=== PATIENT | female | born 1990 | race Caucasian/White ===

== ENCOUNTER 2021-07-01 09:47 | Emergency (ER) | payer MEDICAID, OTHER ==
[~2021-07-01] VITALS: Ht 160 cm; Wt 49.9 kg
[2021-07-01 11:44] LABS: Basophils # (auto) 0.1 10 ^3/uL (0-0.2); Eosinophils # (auto) 0.1 10 ^3/uL (0-0.8); Eosinophils % (auto) 1.8 % (0.0-7.0); Hematocrit 34.5 % (36.0-46.0); Hemoglobin 11.8 g/dL (12.2-16.2); Lymphocytes # (auto) 1.9 10 ^3/uL (0.4-5.4); Lymphocytes % (auto) 30.2 % (10.0-50.0); Mean Corpuscular Hemoglobin 30.8 pg (28.0-32.0); Mean Corpuscular Hgb Conc. 34.3 g/dL (32.0-36.0); Mean Corpuscular Volume 89.8 fL (80.0-100.0); Monocytes # (auto) 0.6 10 ^3/uL (0-1.3); Monocytes % (auto) 9.7 % (0.0-12.0); Neutrophils # (auto) 3.6 10 ^3/uL (1.6-8.6); Neutrophils % (auto) 57.3 % (37.0-80.0); Nucleated Red Blood Cells % 0.1 %; Red Blood Cells 3.84 10^6/uL (4.0-5.20); Red Cell Distribution Width 12.8 % (11.8-14.3); White Blood Cell 6.2 10^3/uL (4.4-10.8)
[2021-07-01 11:49] LABS: INR 0.99 (0.9-1.15); Partial Thromboplastin Time 28.2 sec (23.6-33.0)
[2021-07-01 12:02] LABS: Albumin 2.3 g/dL (3.4-5.0); Calcium 7.8 mg/dL (8.5-10.1); Potassium 4.1 mmol/L (3.5-5.1)
[2021-07-01 12:23] LABS: BUN/Creatinine Ratio 21.2; Bilirubin, Total 0.2 mg/dL (0.2-1.0); Total Protein 6.6 g/dL (6.4-8.2)
[2021-07-01] MEDS ORDERED: CLINDAMYCIN 600 MG/4 ML VL IM ONE (14:15)
[2021-07-01] MEDS ORDERED: cefTRIAXone W LIDOCAINE 1 GM IM IM ONE (14:15)
[2021-07-01] MEDS ORDERED: cefTRIAXone SOD 1,000 MG VL ONE (14:34)
[2021-07-01 14:58] VITALS: BP 118/89
== END 2021-07-01 15:00 | disposition home or self-care (01) ==
LOC: ER 09:47
DX: L03.116 Cellulitis of left lower limb (principal); E43 Unspecified severe protein-calorie malnutrition; Z68.1 Body mass index [BMI] 19.9 or less, adult
CPT/HCPCS: 36415; 80053; 83605; 85025; 85610; 85730; 87040; 96372; 99284; J0696